=== PATIENT | male | born 1960 | race Caucasian/White ===

== ENCOUNTER → 2020-11-04 14:42 | Outpatient (CLI) | payer BC, SELFPAY ==
--- NOTE | ~2020-11-04 | XR_ITS ---
EXAMINATION: CT abdomen pelvis wo/w con, XR abdomen/kub 1V DATE: 11/04/2020 15:31 INDICATION: Gross hematuria TECHNIQUE: 1. Computed tomography (CT) of the abdomen and pelvis was performed without intravenous contrast. CT of the abdomen and pelvis was then performed with a total of 130 mL Omnipaque-350 intravenous contras t using a double-bolus technique for simultaneous opacification of the renal parenchyma and renal col lecting system. The dose-length product was 2522.39 mGy-cm. 2. A single view of the abdomen was obtained on 2 radiographs. COMPARISON: 04/27/2019 FINDINGS: CT: Lung bases are clear. Heart size is normal. No pericardial or pleural effusion. Liver, gallbladder, s pleen, pancreas and bilateral adrenal glands are normal. Bowels are normal. The appendix is not visua lized. No pericecal inflammatory change to suggest acute appendicitis. Kidneys enhance symmetrically. There are several subcentimeter low-attenuation bilateral renal cysts. Linear cluster of 3 2-[address] ones in the distal right ureter proximal to 6-7 cm from the ureterovesicular junction. There is mild more proximal right hydroureteronephrosis. Contrast is seen however extending along the normal calibe r more distal right ureter. No other urolithiasis. No urothelial irregularities identified along the contrast opacified bilateral renal collecting systems and ureters. Bladder is normal. Prostatomegaly measuring 5.4 x 4.1 cm. Small bilateral fat-containing inguinal hernias, left greater than right. No free intraperitoneal gas or fluid. No pathologically enlarged abdominal or pelvic lymphadenopathy. Mo derate lumbar spondylosis. ABDOMEN RADIOGRAPH(S): The 3 stones in the distal right ureter are unable to be visualized on the plain radiographs to at le ast in part due to their small size and likely also obscured by a prominent anterior bridging osteoph yte at the right sacroiliac joint. IMPRESSION: 1. Cluster of 3 2-3 mm partially obstructing stones in the distal right ureter with contrast seen in the more distal right ureter but more proximal mild right hydroureteronephrosis. 2. Prostatomegaly. 3. Small bilateral fat-containing inguinal hernias, left greater than right. Reviewed, dictated and finalized at location B. T DESK TEAM MEMBER IMPRESSION: 1. Cluster of 3 2-3 mm partially obstructing stones in the distal right ureter with contrast seen in the more distal right ureter but more proximal mild right hydroureteronephrosis. 2. Prostatomegaly. 3. Small bilateral fat-containing inguinal hernias, left greater than right.
[2020-11-04 15:08] LABS: Estimated Glomerular Filt Rate > 60
== END ==
PROVIDERS: Visit Provider Nurse Practitioner Adult Health
DX: K40.90 Unilateral inguinal hernia, without obstruction or gangrene, not specified as recurrent (principal); N40.0 Benign prostatic hyperplasia without lower urinary tract symptoms; N20.1 Calculus of ureter
CPT/HCPCS: 74018; 74178; Q9967

== ENCOUNTER → 2020-11-08 02:54 | Outpatient (CLI) | payer BC, SELFPAY ==
[2020-11-08 22:46] LABS: SARS-CoV-2 RNA PCR Negative
== END ==
PROVIDERS: PCP Nurse Practitioner Family; Visit Provider Urology
DX: Z01.812 Encounter for preprocedural laboratory examination (principal); Z20.822 Contact with and (suspected) exposure to COVID-19
CPT/HCPCS: C9803; U0003; U0005

== ENCOUNTER 2020-11-08 14:23 | Outpatient (CLI) | payer BC, SELFPAY ==
--- NOTE | 2020-11-08 14:28 | ECG_ITS ---
Measurements Intervals [place] Rate: 57 P: 5 CO: 154 QRS: -60 QRSD: 114 T: 18 QT: 407 QTc: 399 Interpretive Statements SINUS BRADYCARDIA LEFT ANTERIOR FASCICULAR BLOCK BORDERLINE T WAVE ABNORMALITY- INFERIOR LEADS ABNORMAL ECG Electronically Signed On 11-08-2020 16:34:38 DIRECTOR MUSIC by Alo Theodore D.O.
== END 2020-11-08 14:24 | disposition home or self-care (01) ==
LOC: ANHSURGERY 14:25
PROVIDERS: PCP Nurse Practitioner Family; Visit Provider Urology
DX: E78.00 Pure hypercholesterolemia, unspecified (principal); Z01.818 Encounter for other preprocedural examination; I44.4 Left anterior fascicular block
CPT/HCPCS: 93005

== ENCOUNTER 2020-11-09 01:53 | Day surgery (SDC) | payer BC, SELFPAY ==
[2020-11-07 15:31] VITALS: BMI 38.4
[2020-11-09] VITALS (7 sets, daily range): BP systolic 112–135; BP diastolic 62–90; PULSE 47–62; RESP 14–20; TEMP 36.3; O2SAT 94–97
--- NOTE | ~2020-11-09 | XR_ITS ---
EXAMINATION: XR fluoroscopy no charge EXAM DATE: 11/09/2020 09:53 INDICATION: Right ureteral stone extraction. TECHNIQUE: Fluoroscopy used during XR fluoroscopy no charge performed by Dr. Pavan Valenzuela MD. The DAP for this procedure was 306 radcm2. FINDINGS: Difficult to identify ureteral stone on staff interpreter images. Right ureter was cannulated 1st unrem arkable. Correlate with procedure note. IMPRESSION: Fluoroscopy used during right ureteral stone extraction. Reviewed, dictated and finalized at location B. E MANAGER
--- NOTE | 2020-11-09 08:06 | WPDHPUPDATE1 ---
History and Physical Update Update Date/Time: 11/09/20 08:06 History and Physical has been reviewed, including an updated exam of the patient. There are NO changes in the patient's condition. Risks, benefits, and alternatives have been discussed and questions answered. Patient agrees to proceed with procedure.
[2020-11-09] MEDS: LACTATED RINGERS 1,000 ML 30 ML IV CONT (09:00)
--- NOTE | 2020-11-09 09:02 | P.PNAN_ITS ---
Anes - Initial Pre Proc Eval Procedure: Operation Date: 11/09/20 08:30 Proposed Procedures p Cystoscopy, Right Ureteroscopy with Stone Extraction, Right Retrograde Pyelogram, Right Stent Placement, - Pavan Valenzuela MD s Possible Holmium Laser Procedure - Pavan Valenzuela MD Date/Time: 11/09/20 09:02 Surgeon: Pavan Valenzuela MD Pre Op Diagnosis: right ureteral stones Patient Data Age: 60 Gender: M Height: 1.8 m Weight: 125 kg Allergies Allergy/AdvReac Type Severity Reaction Status Date / Time No Known Allergies Allergy Verified 11/09/20 08:54 Home Medications Medication Instructions Recorded Confirmed Type aspirin 81 mg PO DAILY 11/07/20 11/09/20 History ezetimibe 10 mg PO DAILY 11/07/20 11/09/20 History rosuvastatin 40 mg PO DAILY 11/07/20 11/09/20 History tamsulosin 0.4 mg PO DAILY 11/07/20 11/09/20 History ECG: Date of Service: 11/08/20 Procedure(s): CA 12 lead EKG Accession Number(s): [id number] cc: ~ Measurements Intervals [place] Rate: 57 P: 5 TX: 154 QRS: -60 QRSD: 114 T: 18 QT: 407 QTc: 399 Interpretive Statements SINUS BRADYCARDIA LEFT ANTERIOR FASCICULAR BLOCK BORDERLINE T WAVE ABNORMALITY- INFERIOR LEADS ABNORMAL ECG Electronically Signed On 11-08-2020 16:34:38 SULKY DRIVER by Alo Theodore D.O. Dictated By: Alo Theodore DO 11/08/20 1634 Patient hx anesthesia problems: none Family hx anesthesia problems: none [facility] Past Medical History Medical History CAD (coronary artery disease) Hyperlipidemia Obesity Smoker Surgical History Surgical History (Updated 11/09/20 @ 09:03 by Delgado Finnegan MD) History of coronary artery stent placement Family History Family History (Updated 08/16/16 @ 12:25 by DOCTOR UNKNOWN) Mother Patient's mother is in good health Father Patient's father is in good health Social History Social History Smoking packs per day: 1 Smoking cigarettes per day: 20.0 Years smoked: 35 Smoking pack-years: 35.00 Smoking status: Current every day smoker Tobacco type: cigarettes and cigars Smoking end date: 03/02/11 Additional smoking assessment comments: VAPING 2011 TO CURRENT Alcohol intake: former Alcohol use details: HEAVIER DRINKER YEARS AGO Substance use: never Living arrangements: with family Additional living arrangements comments: Spiritual care concerns: No Anes - Eval Final PreProcedure Day of Procedure 11/09/20 09:02 Patient weight: obese Heart: regular rate and rhythm Lungs: clear to auscultation and normal air movement Airway: Mallampati scale class II Neurological: alert and oriented Last oral intake: >/= 8 hours ASA classification: III Emergent: no Anesthetic plan: proceed Anesthesia type and monitoring: general LMA Informed Consent: The patient's anesthetic plan and its attendant risks and ekaterina efits were discussed with the patient/family/POA. Questions were solicited and answers provided to the satisfaction of the patient/family/POA.
[2020-11-09] MEDS: ceFAZolin 3 GM/D5W 100 ML 100 ML IVPB (09:24)
[2020-11-09] MEDS: LIDOCAINE HCL 2% GEL UROJET 10 ML PKG MUCOUS MEM (09:40)
--- NOTE | 2020-11-09 10:05 | PM.PROC ---
Procedure Note - Detailed Date of procedure: 11/09/20 Pre-op diagnosis: right ureteral stones Post-op diagnosis: same Procedure performed: Cystoscopy, right ureteroscopy with stone extraction Description of procedure: The patient was brought to the operative suite where he is prepped and draped in a routine sterile fashion while in the dorsal lithotomy position after the uneventful induction of a general LMA anesthetic. A 19F rigid cystoscope was placed in the bladder. There are no urethral strictures. His prostatic urethra measures, approximately, 1.5cm with no median lobe enlargement. The bladder mucosa was endoscopically normal without hyperemia or neoplasm. There was a single, orthotopic ureteral orifice bilaterally. A 0.035 glidewire was advanced into the right renal pelvis under fluoroscopy. The distal ureter was dilated with an 8F/10F ureteral dilator. Ureteroscopy was undertaken with a short, tapered, semi-rigid ureteroscope and 3 small stones in the right distal ureter were extracted with ease using a 1.9F Escape disposable stone basket. Due to the ease of this manipulation I opted not to place a ureteral stent. The patient's bladder was emptied and was taken to the recovery room having tolerated this procedure well. Anesthesia: GLMA Surgeon: Pavan Valenzuela MD Estimated blood loss (mL): 0 Urine output (mL): 0 Drains: No Packing: No Pathology: yes (Right ureteral stones) Complications: No immediate complications Condition: stable Disposition: PACU
== END 2020-11-09 11:15 | disposition home or self-care (01) ==
PROVIDERS: PCP Nurse Practitioner Family; Visit Provider Urology
PROC: (CPT 52352; principal; 2020-11-09 08:30)
DX: N20.1 Calculus of ureter (principal); I25.10 Atherosclerotic heart disease of native coronary artery without angina pectoris; E78.5 Hyperlipidemia, unspecified; Z95.5 Presence of coronary angioplasty implant and graft; E66.9 Obesity, unspecified; Z68.38 Body mass index [BMI] 38.0-38.9, adult; F17.290 Nicotine dependence, other tobacco product, uncomplicated
CPT/HCPCS: 52352; 82365; 88300; 93005; A9270; C1769; C9803; J0690; J1100; J1170; J1885; J2250; J2405; J2704; J3010; J7120; Q9966; U0003; U0005

== ENCOUNTER → 2021-06-12 08:29 | Outpatient (CLI) | payer BC, SELFPAY ==
--- NOTE | ~2021-06-12 | XR_ITS ---
EXAMINATION: XR abdomen/kub 1V DATE: 06/12/2021 08:55 INDICATION: Personal history of urinary calculi. TECHNIQUE: A supine view of the abdomen on 2 radiographs was obtained. COMPARISON: CT abdomen and pelvis 11/04/2020 FINDINGS: There are no dilated loops of bowel. IMPRESSION: 1. No visible urolithiasis. Reviewed, dictated and finalized at location A. IMPRESSION: 1. No visible urolithiasis.
== END ==
PROVIDERS: Visit Provider Urology
DX: Z87.442 Personal history of urinary calculi (principal)
CPT/HCPCS: 74018

== ENCOUNTER 2024-01-20 17:05 | Emergency (ER) | payer OTHER, SELFPAY ==
--- NOTE | ~2024-01-20 | XR_ITS ---
EXAMINATION: XR ankle RT min 3V, XR foot RT min 3V DATE: 01/20/2024 17:39 INDICATION: Lateral sided right foot and ankle injury with bruising TECHNIQUE: 1. Anteroposterior, mortise, additional oblique and lateral view of the right ankle were obtained. 2. Dorsoplantar, two oblique and lateral views of the right foot were obtained. COMPARISON: None. FINDINGS: Alignment of the right foot and ankle is normal. No fracture or osteochondral lesion. Polyarticular o steoarthritis, moderate severity first metatarsophalangeal joint and mild at a few of the tarsal meta tarsal and interphalangeal joints. Small Achilles and plantar calcaneal spurs. No ankle joint effusio n. There is soft tissue swelling about the ankle most prominent over the lateral malleolus where ther e is a region of increased density in the subcutaneous fat suspicious for hematoma. IMPRESSION: 1. No acute osseous abnormality. 2. 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 Reviewed, dictated and finalized at location A. IMPRESSION: 1. No acute osseous abnormality. 2. 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
--- NOTE | 2024-01-20 17:11 | ED.LOWEXIN ---
HPI - Extremity Injury (Lower) General Chief Complaint: Extremity Injury, Lower Stated Complaint: Right Ankle Pain Source: patient and RN notes reviewed Mode of arrival: ambulatory Limitations: no limitations History of Present Illness HPI Narrative: Patient is a 63-year-old male who presents to the [facility] with complaints of right ankle and foot pain. Patient states that he slipped on concrete steps while painting on . Patient states that they live lateral aspect of his foot and ankle slid down a concrete steps. He presents with significant bruising and swelling to the right foot and ankle. Sensation is intact and he denies numbness. He is neurovascularly intact distally. He reports decreased range of motion of the foot and ankle. He denies any other injury during the incident. He did not fall, hit his head, or lose consciousness. Related Data Home Medications Medication Instructions Recorded Confirmed aspirin 81 mg capsule,delayed 81 mg PO DAILY 11/07/20 01/20/24 release ezetimibe 10 mg tablet 10 mg PO DAILY 11/07/20 01/20/24 rosuvastatin 40 mg tablet 40 mg PO DAILY 11/07/20 01/20/24 cholecalciferol (vitamin D3) 50 50 mcg PO DAILY 01/20/24 01/20/24 mcg (2,000 unit) capsule (Vitamin D3) empagliflozin 10 mg tablet 10 mg PO DAILY 01/20/24 01/20/24 (Jardiance) finasteride 5 mg tablet 5 mg PO DAILY 01/20/24 01/20/24 Allergies Allergy/AdvReac Type Severity Reaction Status Date / Time No Known Allergies Allergy Verified 01/20/24 17:15 Review of Systems Review of Systems: CONSTITUTIONAL: Denies fever, chills, or sweats. EYES: Denies visual changes, redness, or discharge. ENT: Denies otalgia and sore throat CARDIOVASCULAR: Denies chest pain, palpitations, or edema. RESPIRATORY: Denies cough or dyspnea. GASTROINTESTINAL: Denies abdominal pain, nausea, vomiting, or diarrhea. GENITOURINARY: Denies dysuria or hematuria. SKIN: Denies rash or itching. Bruising to right foot. MUSCULOSKELETAL: Denies back pain or myalgia. Reports right ankle and foot pain and swelling. NEUROLOGIC: Denies headache, numbness, or weakness. Pertinent positives per HPI. [facility] Past Medical History Medical History CAD (coronary artery disease) Hyperlipidemia Obesity Smoker Surgical History Surgical History History of coronary artery stent placement Family History Family History Mother Patient's mother is in good health Father Patient's father is in good health Social History Social History Smoking packs per day: 1 Smoking cigarettes per day: 20.0 Years smoked: 35 Smoking pack-years: 35.00 Smoking status: Current every day smoker Tobacco type: cigarettes and cigars Smoking end date: 03/02/11 Additional smoking assessment comments: VAPING 2011 TO CURRENT Alcohol intake: former Alcohol use details: HEAVIER DRINKER YEARS AGO Substance use: never Living arrangements: with family Additional living arrangements comments: Spiritual care concerns: No Comments At the time of my signature, I reviewed and agree with the nursing past medical, surgical, social, and family history. There is no relevant family history pertinent to the patient complaint. Exam Narrative: GENERAL: This is a well-nourished, well-developed patient, in no apparent distress. HEAD: normocephalic, atraumatic. EYES: Sclera clear/white. Vision is grossly intact. EARS: External ears normal. Hearing grossly intact. NOSE: External nose normal with no obvious nasal discharge, nares without redness, no rhinorrhea. THROAT: Mucous membranes moist, posterior pharynx clear. NECK: Neck supple, non-tender without lymphadenopathy, masses or thyromegaly. CARDIOVASCULAR: Regular rate and rhythm without murmurs, gallops, or rubs. RESPIRATORY: [place]
[2024-01-20 17:13] VITALS: BP 125/84; PULSE 64; RESP 16; TEMP 36.6; O2SAT 94
== END 2024-01-20 17:57 | disposition home or self-care (01) ==
PROVIDERS: Emergency Provider Nurse Practitioner; PCP Family Medicine
DX: S93.401A Sprain of unspecified ligament of right ankle, initial encounter (principal); S90.31XA Contusion of right foot, initial encounter; W10.9XXA Fall (on) (from) unspecified stairs and steps, initial encounter; F17.290 Nicotine dependence, other tobacco product, uncomplicated; I25.10 Atherosclerotic heart disease of native coronary artery without angina pectoris; E78.5 Hyperlipidemia, unspecified; E66.9 Obesity, unspecified; Z68.37 Body mass index [BMI] 37.0-37.9, adult; Z79.82 Long term (current) use of aspirin
CPT/HCPCS: 73610; 73630; 99203; G0463

== ENCOUNTER 2024-07-31 09:55 | Emergency (ER) | payer OTHER, SELFPAY ==
--- NOTE | ~2024-07-31 | XR_ITS ---
EXAMINATION: XR shoulder RT min 2V DATE: 07/31/2024 10:37 INDICATION: One month of right shoulder pain TECHNIQUE: AP internally and externally rotated, AP oblique externally rotated and transscapular Y vi ews of the right shoulder were obtained. COMPARISON: None FINDINGS: Normal alignment. No fracture.Mild right glenohumeral osteoarthritis and moderate acromioclavicular osteoarthritis. Right lung is clear with no pulmonary edema, pleural effusion or pneumothorax. Soft t issues are unremarkable. IMPRESSION: Old right glenohumeral and moderate acromioclavicular osteoarthritis. Reviewed, dictated and finalized at location A. R INSPECTOR
[2024-07-31 10:08] VITALS: BP 127/85; PULSE 61; RESP 16; TEMP 36.6; O2SAT 98
--- NOTE | 2024-07-31 10:19 | ED.UPPEXIN ---
HPI - Extremity Injury (Upper) General Chief Complaint: Extremity Injury, Upper Stated Complaint: Shoulder Pain Time Seen by Provider: 07/31/24 10:19 Source: patient Mode of arrival: ambulatory Limitations: no limitations History of Present Illness HPI narrative: 63-year-old male presents with complaint of pain to right shoulder for 1 month. Denies injury. Has been taking Aleve twice a day to treat pain. This morning woke up and shoulder pain was much worse. Pain radiating to upper back and right-sided neck. Stretched this morning and now pain has improved. Did not take any Aleve prior to arrival. Patient stood at [employer] yesterday cooking brats. States he also helped cook breakfast. All systems reviewed and negative except as noted above. Related Data Home Medications Medication Instructions Recorded Confirmed aspirin 81 mg capsule,delayed 81 mg PO DAILY 11/07/20 07/31/24 release ezetimibe 10 mg tablet 10 mg PO DAILY 11/07/20 07/31/24 rosuvastatin 40 mg tablet 40 mg PO DAILY 11/07/20 07/31/24 cholecalciferol (vitamin D3) 50 50 mcg PO DAILY 01/20/24 07/31/24 mcg (2,000 unit) capsule (Vitamin D3) empagliflozin 10 mg tablet 10 mg PO DAILY 01/20/24 07/31/24 (Jardiance) finasteride 5 mg tablet 5 mg PO DAILY 01/20/24 07/31/24 Allergies Allergy/AdvReac Type Severity Reaction Status Date / Time No Known Allergies Allergy Verified 07/31/24 10:18 Review of Systems Review of Systems: CONSTITUTIONAL: Denies fever, chills, or sweats. EYES: Denies visual changes, redness, or discharge. ENT: Denies rhinorrhea, congestion, sore throat, or otalgia. CARDIOVASCULAR: Denies chest pain, palpitations, or edema. RESPIRATORY: Denies cough or dyspnea. GASTROINTESTINAL: Denies abdominal pain, nausea, vomiting, or diarrhea. GENITOURINARY: Denies dysuria or hematuria. SKIN: Denies rash or itching. MUSCULOSKELETAL: Denies back pain, joint pain, or myalgia. Reports right shoulder pain. NEUROLOGIC: Denies headache, numbness, or weakness. PSYCHIATRIC: Denies anxiety or depression. All other systems reviewed are negative, except as documented in HPI. [facility] Past Medical History Medical History CAD (coronary artery disease) Hyperlipidemia Obesity Smoker Surgical History Surgical History History of coronary artery stent placement Family History Family History Mother Patient's mother is in good health Father Patient's father is in good health Social History Social History Smoking packs per day: 1 Smoking cigarettes per day: 20.0 Years smoked: 35 Smoking pack-years: 35.00 Smoking status: Current every day smoker Tobacco type: cigarettes and cigars Smoking end date: 03/02/11 Additional smoking assessment comments: VAPING 2011 TO CURRENT Alcohol intake: former Alcohol use details: HEAVIER DRINKER YEARS AGO Substance use: never Living arrangements: with family Additional living arrangements comments: Spiritual care concerns: No Comments At time of signature, agree with nursing past medical, surgical, social and family history. There is no relevant family history pertinent to the presenting complaint. Exam Narrative: GENERAL: This is a well-nourished, well-developed patient, in no apparent distress. HEAD: normocephalic, atraumatic. EYES: PERRL. Sclera clear/white. Vision is grossly intact. EARS: External ears normal, auditory canals clear and without drainage, TMs normal without perforation. Hearing grossly intact. NOSE: External nose normal with no obvious nasal discharge, nares without redness, no rhinorrhea. THROAT: Mucous membranes moist, posterior pharynx clear. NECK: Neck supple, non-tender without lymphadenopathy, masses or thyromegaly. CARDIOVASCULAR: Regular rate and rhythm without murmurs, gallops, or rubs. RESPIRATORY: Clear to auscultation. Breath sounds equal bilaterally. No wheezes, rales, or rhonchi. SKIN: warm, Dry, intact with no suspicious lesions or rash, good texture and turgor. NEURO: awake, alert, and oriented to person, place and time. There were no obvious focal neurologic abnormalities. EXTREMITIES: No tenderness to right shoulder on palpation. Normal range of motion. Normal strength. Course Course Level of Care: Express Care Visit Vital Signs Vital signs: Vital Signs Temperature 36.6 C 07/31/24 10:08 Pulse Rate 61 07/31/24 10:08 Respiratory Rate 16 07/31/24 10:08 Blood Pressure 127/85 07/31/24 10:08 Pulse Oximetry 98 07/31/24 10:08 Temperature 36.6 C 07/31/24 10:08 Pulse Rate 61 07/31/24 10:08 Respiratory Rate 16 07/31/24 10:08 Blood Pressure 127/85 07/31/24 10:08 Pulse Oximetry 98 07/31/24 10:08 Reviewed MDM - Extremity Injury (Upper) MDM Narrative Medical decision making narrative: Discussed x-ray results with patient. Will treat for arthritis flare. Patient had normal exam of right shoulder. At time of signature, agree with nursing past medical, surgical, social and family history. There is no relevant family history pertinent to the presenting complaint. Imaging Data My impression: Agree with radiologist Radiologist's impression: EXAMINATION: XR shoulder RT min 2V DATE: 07/31/2024 10:37 INDICATION: One month of right shoulder pain TECHNIQUE: AP internally and externally rotated, AP oblique externally rotated and transscapular Y views of the right shoulder were obtained. COMPARISON: None FINDINGS: Normal alignment. No fracture.Mild right glenohumeral osteoarthritis and moderate acromioclavicular osteoarthritis. Right lung is clear with no pulmonary edema, pleural effusion or pneumothorax. Soft tissues are unremarkable. IMPRESSION: Old right glenohumeral and moderate acromioclavicular osteoarthritis. Discharge Plan Discharge Clinical Impression: Osteoarthritis of right shoulder Qualifiers: Osteoarthritis type: unspecified Qualified Code(s): M19.011 - Primary osteoarthritis, right shoulder Patient Disposition: Home, Self-Care Condition: Stable Instructions: Osteoarthritis (ED), Shoulder Pain (ED) Additional Instructions: The x-ray of your right shoulder showed osteoarthritis. Take medications as prescribed. Methocarbamol is a muscle relaxant may make you drowsy. Do not drive while taking this medication. Take Tylenol every 6-8 hours as needed for pain. Alternate between ice and heat. Follow-up with your primary care physician if pain is not improving. Prescriptions: New methocarbamol 750 mg tablet 750 mg PO Q8H PRN (Reason: muscle pain/spasm) Qty: 30 0RF methylprednisolone [Medrol ([place])] 4 mg tablets,dose pack See Rx Instructions PO .COMPLEX Qty: 21 0RF Rx Instructions: orally per package directions No Action finasteride 5 mg tablet 5 mg PO DAILY Jardiance 10 mg tablet 10 mg PO DAILY cholecalciferol (vitamin D3) [Vitamin D3] 50 mcg (2,000 unit) Capsule 50 mcg PO DAILY aspirin 81 mg Capsule,Delayed Release(Dr/Ec) 81 mg PO DAILY ezetimibe 10 mg tablet 10 mg PO DAILY rosuvastatin 40 mg tablet 40 mg PO DAILY Follow-up/Referrals: Sherri,Jason Shaver MD [Primary Care Provider] - Time of Disposition: 10:56
== END 2024-07-31 11:05 | disposition home or self-care (01) ==
PROVIDERS: Emergency Provider Nurse Practitioner Family; PCP Family Medicine
DX: M19.011 Primary osteoarthritis, right shoulder (principal); F17.290 Nicotine dependence, other tobacco product, uncomplicated; I25.10 Atherosclerotic heart disease of native coronary artery without angina pectoris; E78.5 Hyperlipidemia, unspecified; E66.9 Obesity, unspecified; Z95.5 Presence of coronary angioplasty implant and graft; Z79.82 Long term (current) use of aspirin
CPT/HCPCS: 73030; 99213; G0463